=== PATIENT | male | born 1990 ===

== ENCOUNTER 2018-08-04 12:02 | Emergency (ER) | payer MEDICAID ==
[2018-08-04 12:06] VITALS: BP 134/96
[2018-08-04] MEDS ORDERED: KETOROLAC TROM 10MG TAB PO ONE (12:10)
[2018-08-04] MEDS ORDERED: PRED20TA6 PO (12:13)
[2018-08-04] MEDS ORDERED: CYCL10TA29 PO (12:13)
[2018-08-04] MEDS ORDERED: KET10 PO (12:13)
--- NOTE | 2018-08-04 12:13 | ER Report ---
History and Physical Time Seen By MD: 12:08 Hx. 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 COMPLAINING OF MID BACK PAIN HPI/ROS CHIEF COMPLAINT: Mid back pain HISTORY OF PRESENT ILLNESS: Otherwise healthy 27-year-old male significant past medical history of right-sided sciatica issues morbidly obesity comes emergency Department today about 2030 minute prior to presentation was at work bent over to close a drawer on the floor and felt a strain in his middle back no numbness or saddle paresthesias no urinary bladder bowel incontinence pain is localized to the mid back area no fall no trauma no additional complaints noted REVIEW OF SYSTEMS: Respiratory: No cough, no dyspnea. Cardiovascular: No chest pain, no palpitations. Gastrointestinal: No vomiting, no abdominal pain. Musculoskeletal: Has back pain Remainder of the 14 system rev: Yes Reviewed Nurses Notes: Yes Old Medical Records Reviewed: Yes Physical Exam General appearance: Alert no distress. Respiratory: Chest is non tender, lungs are clear to auscultation. Cardiac: Regular rate and rhythm [ ] Back examination no spinal tenderness to deep palpation no bony step-offs abnormalities full range of motion no paraspinal muscle tenderness otherwise unremarkable exam DIFFERENTIAL DIAGNOSIS: After history and physical exam differential diagnosis was considered for soft tissue strain disc herniation Medical Decision Making ED Course/Re-evaluation ED Course ED course 27-year-old male comes emergency Department today with a complaint of mid back pain he bent over to close a drawer on the floor while at work normally closed with his foot felt a strain in his mid back. Patient has no trauma no falls no indication for imaging at this time. Give the patient a single dose of Toradol for his discomfort we'll give him a prescription for anti-inflammatories and some muscle relaxants for the next couple of days we'll give him an excuse for work for the next week no heavy lifting and M follow-up with primary care which we will assign Decision to Disposition Date: Aug 04, 2018 Decision to Disposition Time: 12:10 Depart Departure Impression: Primary Impression: Back strain Condition: Improved Disposition: HOME OR SELF-CARE Referrals: JD SHANNON MD 5 Days New Scripts Cyclobenzaprine Hcl (CYCLOBENZAPRINE HCL) 10 Mg Tablet 10 MG PO TID, #9 TAB Prov: JOSEPH BARBOSA MD 08/04/18 Ketorolac Tromethamine (KETOROLAC TROMETHAMINE) 10 Mg Tab 10 MG PO Q6H PRN for BACK PAIN, #12 TAB Prov: JOSEPH BARBOSA MD 08/04/18 Prednisone (PREDNISONE) 20 Mg Tablet 60 MG PO QDAY, #12 0 Refills Prov: JOSEPH BARBOSA MD 08/04/18 Patient Instructions: Back Pain (ED) JOSEPH BARBOSA MD Aug 04, 2018 12:13
== END 2018-08-04 12:23 | disposition home or self-care (01) ==
LOC: ER 12:12
DX: S39.012A Strain of muscle, fascia and tendon of lower back, initial encounter (principal)
CPT/HCPCS: 99283